=== PATIENT | female | born 1970 | race Caucasian/White ===

== ENCOUNTER 2017-02-26 23:40 | Emergency (ER) | payer OTHER ==
[~2017-02-26] VITALS: Ht 152.4 cm; Wt 52.6 kg
[~2017-02-26 23:40] MED LIST: ALBUTEROL17 GM INH; ALESSE-281 TAB PO; ATENOLOL PO; BACTRIM DS TABL1 TA2 PO; BENTYL10 MG PO; CIPRO PO; DESYREL100 MG PO; DOXYCYCLINE150 MG PO; FLAGYL PO; LAMICTAL25 MG PO; NO MEDICATIONS; OMEPRAZOLE40 MG PO; PAXIL40 MG PO; PERCOCET5/325 PO; PHENERGAN/CODEIN5 ML PO; TENEX2 M1 PO; TOPAMAX25 MG PO; VOLTAREN75 MG PO; ZOFRAN ODT4 MG PO
[2017-02-27 00:06] LABS: URINE SOURCE CLEAN CATCH
[2017-02-27 00:10] LABS: MICRO INDICATED? YES; URINE APPEARANCE HAZY; URINE BILIRUBIN NEG (NEG); URINE BLOOD 1+ (NEG); URINE COLOR YELLOW; URINE GLUCOSE NEG (NORM); URINE KETONE NEG (NEG); URINE LEUKOCYTE ESTERASE 1+ (NEG); URINE NITRATE NEG (NEG); URINE PROTEIN 1+ (NEG)
[2017-02-27 00:14] LABS: CULTURE INDICATED? YES; URINE BACTERIA 1+ (NEG); URINE GRANULAR CAST 0-2 /[HPF]; URINE HYALINE CAST 0-2 /[HPF]; URINE SQUAMOUS EPITHELIAL CELL MODERATE /[HPF]; URINE TRANSITIONAL EPI CELLS OCCAS /[HPF]; URINE WBC 100-200 /[HPF] (0-5)
[2017-02-27 00:20] LABS: AMPHETAMINE POS (NEG); BARBITURATES NEG (NEG); BENZODIAZEPINES NEG (NEG); COCAINE NEG (NEG); MARIJUANA NEG (NEG); OPIATES POS (NEG); TRICYCLIC ANTIDEPRESSANTS NEG (NEG); U METHADONE NEG (NEG)
[2017-02-27 00:27] LABS: BASOPHIL# 0.1 X10e3 (0-0.3); BASOPHIL% 1.1 % (0-2.5); DIFF IND NO; EOSINOPHIL# 0.1 X10e3 (0-0.7); EOSINOPHIL% 0.8 % (0.0-7.0); HEMATOCRIT 42.8 % (35.0-45.0); HEMOGLOBIN 14.8 gm/dL (12.0-16.0); LYMPHOCYTE# 2.2 X10e3 (1.0-3.5); LYMPHOCYTE% 20.7 % (17.0-45.0); MEAN CELL VOLUME 94.9 FL (83-96); MEAN CORPUSCULAR HEMOGLOBIN 32.8 PG (28-34); MEAN CORPUSCULAR HGB CONC 34.6 g/dL (30-36); MEAN PLATELET VOLUME 8.6 FL (6.5-11.5); MONOCYTE# 1.5 X10e3 (0-1.0); MONOCYTE% 13.6 % (3.0-12.0); NEUTROPHIL# 6.8 X10e3 (1.5-7.1); NEUTROPHIL% 63.8 % (40-75); PLATELET COUNT 183 X10e3 (140-420); RED BLOOD COUNT 4.51 X10e (3.90-5.30); RED CELL DISTRIBUTION WIDTH 12.7 % (11.0-15.5); WHITE BLOOD COUNT 10.7 X10e3 (4.0-10.5)
[2017-02-27 00:44] LABS: ALBUMIN SERUM 3.8 g/dL (3.5-5.0); ALKALINE PHOSPHATASE 131 U/L (32-92); ALT (SGPT) 75 U/L (10-40); AST (SGOT) 97 U/L (10-42); BILIRUBIN, DIRECT 0.6 mg/dL (0.0-0.2); BILIRUBIN,INDIRECT 1.2 mg/dL (0.0-0.9); BILIRUBIN,TOTAL 1.8 mg/dL (0.2-2.0); BLOOD UREA NITROGEN 30 mg/dL (9-23); CALCIUM SERUM 8.8 mg/dL (8.4-10.2); CARBON DIOXIDE 24 mmol/L (22-31); CHLORIDE 101 mmol/L (100-111); CREATININE SERUM 1.2 mg/dL (0.6-1.4); GLOM FILT RATE Estimated 53.4 mL/min (>60); GLUCOSE FASTING 105 mg/dL (70-110); LIPASE 29 U/L (22-51); POTASSIUM 3.9 mmol/L (3.5-5.1); PROTEIN TOTAL SERUM 7.2 g/dL (6.0-8.3); SODIUM 134 mmol/L (135-145)
[2017-02-27 00:45] LABS: ALCOHOL BLOOD <5 mg/dL (0)
== END 2017-02-27 01:23 | disposition home or self-care (01) ==
LOC: SED 23:40
PROVIDERS: Student in an Organized Health Care Education/Training Program
DX: N39.0 Urinary tract infection, site not specified (principal); F19.10 Other psychoactive substance abuse, uncomplicated; K21.9 Gastro-esophageal reflux disease without esophagitis; I10 Essential (primary) hypertension; Z91.041 Radiographic dye allergy status; Z79.899 Other long term (current) drug therapy
CPT/HCPCS: 36415; 80048; 80076; 80307; 81003; 83690; 84703; 85025; 87086; 87088; 96361; 96365; 96375; 99284; G0480; J0696; J2405